=== PATIENT | male | born 1990 | race Caucasian/White ===

== ENCOUNTER 2021-12-06 08:53 | Emergency (ER) | payer OTHER ==
[~2021-12-06] VITALS: Ht 180.3 cm; Wt 69.5 kg
[2021-12-06 08:58] VITALS: BP 132/79
--- NOTE | 2021-12-06 09:03 | NUR ---
PATIENT W/C ASSISTED TO BED 11.
--- NOTE | 2021-12-06 09:03 | NUR ---
Diego cooper in [facility] - 12/06/21 at 0909 by MED1 PATIENT W/C ASSITED TO BED 11.
--- NOTE | 2021-12-06 09:10 | NUR ---
RAD AT BEDSIDE
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
--- NOTE | 2021-12-06 09:17 | NUR ---
DR DOUGLASS AT BEDSIDE EVALUATING PT
--- NOTE | 2021-12-06 09:36 | NUR ---
GEL ANKLE STIRRUP APPLIED TO R ANKLE WITH +[facility] BEFORE/AFTER APPLICATION. PATIENT EDUCATED WITH STRAP ADJUSTMENTS NEEDED.
[2021-12-06] MEDS ORDERED: NAPR-54 PO (09:40)
--- NOTE | 2021-12-06 09:53 | NUR ---
Patient discharged with v/s stable. Written and verbal after care instructions ABOUT ANKLE SPRAIN given and explained. Patient alert, oriented and verbalized understanding of instructions. Ambulatory with steady gait WITH CRUTCHES. All questions addressed prior to discharge. ID band removed. Patient advised to follow up with PMD. Rx of NAPROXEN given. Patient educated on indication of medication including possible reaction and side effects. Opportunity to ask questions provided and answered.
== END 2021-12-06 09:52 | disposition home or self-care (01) ==
LOC: MED 08:53
DX: S93.401A Sprain of unspecified ligament of right ankle, initial encounter (principal); Z79.1 Long term (current) use of non-steroidal anti-inflammatories (NSAID); W20.8XXA Other cause of strike by thrown, projected or falling object, initial encounter; Y93.89 Activity, other specified; Y92.89 Other specified places as the place of occurrence of the external cause; Y99.8 Other external cause status
CPT/HCPCS: 29515; 73610; 99283; Q0092